=== PATIENT | female | born 1990 | race Caucasian/White ===

== ENCOUNTER 2017-09-02 06:25 | Inpatient (IN) | payer MEDICAID ==
[2017-09-02] MEDS: LACTATED RINGER'S 1,000 ML IV ×4 (07:05→14:16)
[2017-09-02] MEDS ORDERED: LIDOCAINE 1% (MPF) 30 ML INJ INJ (07:30)
[2017-09-02] MEDS ORDERED: OXYTOCIN 30 UNITS/LR 500 ML IV ×2 (07:30→21:30)
[2017-09-02] MEDS ORDERED: CARBOPROST 250 MCG INJ IM ×2 (07:30→21:30)
[2017-09-02] MEDS ORDERED: IBUPROFEN 600 MG TAB PO (07:30)
[2017-09-02] MEDS: BUTORPHANOL 2 MG INJ IV (08:18)
[2017-09-02 08:20] LABS: ADD MAN DIFF? NO
[2017-09-02 08:24] LABS: BASOPHILS % 0.3 % (0.0-2.0); EOSINOPHILS % 0.3 % (0.0-7.0); HEMATOCRIT 31.5 % (37.0-47.0); HEMOGLOBIN 10.8 g/dl (12.0-16.0); LYMPHOCYTES # 2.6 10^3/ul (0.8-2.9); LYMPHOCYTES % 20.2 % (15.0-51.0); MEAN CORPUSCULAR HGB CONC 34.3 g/dl (32.0-37.0); MEAN CORPUSCULAR VOLUME 90.5 fl (82.0-101.0); MONOCYTE # 0.9 10^3/ul (0.3-0.9); MONOCYTES % 6.9 % (0.0-11.0); NEUTROPHIL # 9.3 10^3/ul (1.6-7.5); NEUTROPHILS % 71.3 % (39.0-77.0); PLATELET COUNT 210 10^3/UL (140-415); RED BLOOD COUNT 3.48 10^6/ul (4.20-5.40); RED CELL DISTRIBUTION WIDTH 12.6 % (11.5-14.5)
[2017-09-02] MEDS ORDERED: ONDANSETRON 4 MG INJ IV (09:00)
[2017-09-02] MEDS ORDERED: NALOXONE (0.4 MG/ML) INJ IV (09:00)
[2017-09-02] MEDS ORDERED: DIPHENHYDRAMINE 50 MG INJ IV (09:00)
[2017-09-02 09:12] LABS: HEPATITIS B SURFACE ANTIGEN NEGATIVE (NEGATIVE)
[2017-09-02 09:16] LABS: INR 0.91; PROTIME 12.3 Sec (11.9-14.9)
[2017-09-02 09:17] LABS: PARTIAL THROMBOPLASTIN TIME 24.1 Sec (25.0-35.0)
[2017-09-02] MEDS ORDERED: FENTAnyl 2MCG/ML-ROPIV 0.2% 100 ML (09:25)
[2017-09-02] MEDS: FENTAnyl 2MCG/ML-ROPIV 0.2% 100 ML BAG EPI (17:18)
[2017-09-02 17:23] LABS: RAPID PLASMA REAGIN NONREACTIVE (NR)
[2017-09-02] MEDS: OXYTOCIN 30 UNITS/LR 500 ML IV ×2 (18:52→19:47)
[2017-09-02] MEDS: METHYLERGONOVINE 0.2 MG INJ IM (19:03)
[2017-09-02] MEDS: MISOPROSTOL 200 MCG TAB PR (19:04)
[2017-09-02] MEDS ORDERED: MISOPROSTOL 200 MCG TAB PR (21:30)
[2017-09-02] MEDS ORDERED: HYDROCODONE/APAP (5/325) TAB PO (21:30)
[2017-09-02] MEDS ORDERED: METHYLERGONOVINE 0.2 MG INJ IM (21:30)
[2017-09-02] MEDS ORDERED: ACETAMINOPHEN 325 MG TAB PO (21:30)
[2017-09-02] MEDS ORDERED: DIBUCAINE 1% 30 GM OINT PR (21:30)
[2017-09-02 21:57] LABS: ADD MAN DIFF? NO
[2017-09-02 22:01] LABS: WHITE BLOOD COUNT 22.6 10^3/ul (4.8-10.8)
[2017-09-02 22:01] LABS: BASOPHILS % 0.1 % (0.0-2.0); HEMATOCRIT 36.5 % (37.0-47.0); HEMOGLOBIN 12.1 g/dl (12.0-16.0); LYMPHOCYTES # 1.5 10^3/ul (0.8-2.9); LYMPHOCYTES % 6.8 % (15.0-51.0); MEAN CORPUSCULAR HEMOGLOBIN 30.3 pg (29.0-33.0); MEAN CORPUSCULAR HGB CONC 33.2 g/dl (32.0-37.0); MEAN CORPUSCULAR VOLUME 91.3 fl (82.0-101.0); MEAN PLATELET VOLUME 11.6 fl (7.4-10.4); MONOCYTE # 1.1 10^3/ul (0.3-0.9); MONOCYTES % 5.1 % (0.0-11.0); NEUTROPHIL # 19.7 10^3/ul (1.6-7.5); NEUTROPHILS % 87.3 % (39.0-77.0); PLATELET COUNT 201 10^3/UL (140-415); RED CELL DISTRIBUTION WIDTH 12.7 % (11.5-14.5)
[2017-09-02] MEDS: SENNA/DOCUSATE NA (8.6MG/50MG) TAB PO (22:58)
[2017-09-02] MEDS: LANOLIN 7 GM TUBE TOP (22:59)
[2017-09-02] MEDS: WITCH HAZEL/GLYCERIN PAD PR (22:59)
[2017-09-02] MEDS: BENZOCAINE 20% 56 ML SPRAY TOP (22:59)
[2017-09-03] MEDS: IBUPROFEN 600 MG TAB PO ×5 (00:28→23:43)
[2017-09-03] MEDS: AMPICILLIN/SULB 3 GM/NS (PMX) 100 ML IVPB ×5 (00:28→23:43)
[2017-09-03] MEDS: LACTATED RINGER'S 1,000 ML IV* ×4 (00:29→23:42)
[2017-09-03] MEDS: SENNA/DOCUSATE NA (8.6MG/50MG) TAB PO ×2 (08:35→21:09)
[2017-09-03 09:29] LABS: ADD MAN DIFF? NO
[2017-09-03 09:33] LABS: BASOPHILS % 0.2 % (0.0-2.0); EOSINOPHILS # 0.1 10^3/ul (0.0-0.5); EOSINOPHILS % 0.2 % (0.0-7.0); HEMATOCRIT 28.9 % (37.0-47.0); HEMOGLOBIN 9.8 g/dl (12.0-16.0); LYMPHOCYTES # 3.7 10^3/ul (0.8-2.9); LYMPHOCYTES % 18.2 % (15.0-51.0); MEAN CORPUSCULAR HEMOGLOBIN 30.9 pg (29.0-33.0); MEAN CORPUSCULAR HGB CONC 33.9 g/dl (32.0-37.0); MEAN CORPUSCULAR VOLUME 91.2 fl (82.0-101.0); MEAN PLATELET VOLUME 11.4 fl (7.4-10.4); MONOCYTE # 1.5 10^3/ul (0.3-0.9); MONOCYTES % 7.2 % (0.0-11.0); NEUTROPHIL # 15.1 10^3/ul (1.6-7.5); NEUTROPHILS % 73.3 % (39.0-77.0); PLATELET COUNT 178 10^3/UL (140-415); RED BLOOD COUNT 3.17 10^6/ul (4.20-5.40); RED CELL DISTRIBUTION WIDTH 12.6 % (11.5-14.5)
[2017-09-03 09:33] LABS: WHITE BLOOD COUNT 20.5 10^3/ul (4.8-10.8)
[2017-09-03] MEDS: FERROUS SULFATE (EC) 325 MG TAB PO (21:09)
[2017-09-04] MEDS: LACTATED RINGER'S 1,000 ML IV* (05:27)
[2017-09-04] MEDS: IBUPROFEN 600 MG TAB PO ×3 (05:56→18:00)
[2017-09-04] MEDS: AMPICILLIN/SULB 3 GM/NS (PMX) 100 ML IVPB ×4 (05:57→19:35)
[2017-09-04 06:58] LABS: ADD MAN DIFF? NO
[2017-09-04 07:04] LABS: WHITE BLOOD COUNT 15.3 10^3/ul (4.8-10.8)
[2017-09-04 07:04] LABS: BASOPHIL # 0.1 10^3/ul (0.0-0.1); BASOPHILS % 0.4 % (0.0-2.0); EOSINOPHILS # 0.1 10^3/ul (0.0-0.5); EOSINOPHILS % 0.8 % (0.0-7.0); HEMATOCRIT 27.4 % (37.0-47.0); LYMPHOCYTES # 4.1 10^3/ul (0.8-2.9); LYMPHOCYTES % 26.8 % (15.0-51.0); MEAN CORPUSCULAR HEMOGLOBIN 30.5 pg (29.0-33.0); MEAN CORPUSCULAR HGB CONC 32.8 g/dl (32.0-37.0); MEAN CORPUSCULAR VOLUME 92.9 fl (82.0-101.0); MEAN PLATELET VOLUME 11.8 fl (7.4-10.4); MONOCYTE # 0.9 10^3/ul (0.3-0.9); MONOCYTES % 5.9 % (0.0-11.0); NEUTROPHILS % 65.1 % (39.0-77.0); PLATELET COUNT 186 10^3/UL (140-415); RED BLOOD COUNT 2.95 10^6/ul (4.20-5.40); RED CELL DISTRIBUTION WIDTH 12.9 % (11.5-14.5)
[2017-09-04] MEDS: DIPHTH/TET/ACEL PERTUSS (ADULT) 0.5 ML VIAL IM* (09:00)
[2017-09-04] MEDS: SENNA/DOCUSATE NA (8.6MG/50MG) TAB PO (09:12)
[2017-09-04] MEDS: FERROUS SULFATE (EC) 325 MG TAB PO ×2 (09:12→13:47)
[2017-09-05] MEDS: FERROUS SULFATE (EC) 325 MG TAB PO ×3 (00:41→13:20)
[2017-09-05] MEDS: IBUPROFEN 600 MG TAB PO ×3 (00:41→13:19)
[2017-09-05] MEDS: SENNA/DOCUSATE NA (8.6MG/50MG) TAB PO ×2 (00:41→09:16)
[2017-09-05] MEDS: AMPICILLIN/SULB 3 GM/NS (PMX) 100 ML IVPB ×2 (00:43→06:05)
[2017-09-05] MEDS: LACTATED RINGER'S 1,000 ML IV* ×3 (05:27→05:31)
[2017-09-05 07:02] LABS: ADD MAN DIFF? NO
[2017-09-05 07:10] LABS: BASOPHIL # 0.1 10^3/ul (0.0-0.1); BASOPHILS % 0.5 % (0.0-2.0); EOSINOPHILS # 0.2 10^3/ul (0.0-0.5); EOSINOPHILS % 1.8 % (0.0-7.0); HEMATOCRIT 27.4 % (37.0-47.0); HEMOGLOBIN 9.2 g/dl (12.0-16.0); LYMPHOCYTES # 3.9 10^3/ul (0.8-2.9); LYMPHOCYTES % 29.5 % (15.0-51.0); MEAN CORPUSCULAR HEMOGLOBIN 30.8 pg (29.0-33.0); MEAN CORPUSCULAR HGB CONC 33.6 g/dl (32.0-37.0); MEAN CORPUSCULAR VOLUME 91.6 fl (82.0-101.0); MEAN PLATELET VOLUME 11.1 fl (7.4-10.4); MONOCYTE # 0.7 10^3/ul (0.3-0.9); MONOCYTES % 5.6 % (0.0-11.0); NEUTROPHIL # 8.1 10^3/ul (1.6-7.5); NEUTROPHILS % 61.2 % (39.0-77.0); PLATELET COUNT 194 10^3/UL (140-415); RED BLOOD COUNT 2.99 10^6/ul (4.20-5.40); RED CELL DISTRIBUTION WIDTH 12.8 % (11.5-14.5)
[2017-09-05 07:10] LABS: WHITE BLOOD COUNT 13.2 10^3/ul (4.8-10.8)
== END 2017-09-05 14:05 | disposition home or self-care (01) | DRG 775 ==
LOC: OBT 06:25 → L-D 06:30 → OBT 07:05 → L-D 07:05 → PP1 21:26
PROVIDERS: Obstetrics & Gynecology
PROC: 10E0XZZ Delivery of Products of Conception, External Approach (ICD-10-PCS; principal; 2017-09-02)
PROC: 0KQM0ZZ Repair Perineum Muscle, Open Approach (ICD-10-PCS; 2017-09-02)
PROC: 3E033VJ Introduction of Other Hormone into Peripheral Vein, Percutaneous Approach (ICD-10-PCS; 2017-09-02)
DX: O70.0 First degree perineal laceration during delivery (principal); Z37.0 Single live birth; Z3A.39 39 weeks gestation of pregnancy
CPT/HCPCS: 62319; 85025; 85610; 85730; 86592; 86850; 86900; 86901; 87040; 87086; 87340

== ENCOUNTER 2018-11-12 17:16 | Outpatient (CLI) | payer MEDICAID | END 2018-11-12 21:47 | disposition home or self-care (01) | LOC: OBT 17:16 → L-D 17:17 → OBT 21:47 | DX: O26.893 Other specified pregnancy related conditions, third trimester (principal); Z3A.33 33 weeks gestation of pregnancy; R10.2 Pelvic and perineal pain | CPT/HCPCS: 76815; 76817; 76818 ==

== ENCOUNTER 2018-11-13 09:33 | Inpatient (IN) | payer MEDICAID ==
[2018-11-13] MEDS ORDERED: AL HYDROX/MG HYDROX/SIMETH 30 ML CUP PO (10:00)
[2018-11-13] MEDS ORDERED: ONDANSETRON 4 MG INJ IV (10:00)
[2018-11-13] MEDS ORDERED: DOCUSATE SODIUM 100 MG CAP PO (10:00)
[2018-11-13] MEDS: LACTATED RINGER'S 1,000 ML IV ×2 (10:08→20:04)
[2018-11-13] MEDS: MAGNESIUM SULFATE 4 GM/100 ML 100 ML IV (10:11)
[2018-11-13] MEDS: MAGNESIUM SULFATE 20 GM/500 ML 500 ML IV ×2 (10:18→20:07)
[2018-11-13 10:40] LABS: ADD UMIC YES; UR AMORPHOUS CRYSTAL FEW /HPF (NONE SEEN); UR ASCORBIC ACID NEGATIVE (NEGATIVE); UR BACTERIA FEW /HPF (NONE SEEN); UR BILIRUBIN (Dip) NEGATIVE (NEGATIVE); UR BLOOD (Dip) 1+ mg/dL (NEGATIVE); UR CLARITY TURBID (CLEAR); UR COLOR YELLOW (YELLOW); UR GLUCOSE (Dip) NEGATIVE (NEGATIVE); UR KETONES (Dip) 2+ mg/dL (NEGATIVE); UR LEUKOCYTE ESTERASE (Dip) NEGATIVE Leu/ul (NEGATIVE); UR MUCUS FEW /HPF (NONE SEEN); UR NITRITE (Dip) NEGATIVE (NEGATIVE); UR RBC 50 /HPF (0-5); UR SPECIFIC GRAVITY (Dip) 1.016 (1.003-1.030); UR SQUAMOUS EPITHELIAL CELL FEW /HPF (FEW); UR TOTAL PROTEIN (Dip) 1+ mg/dl (NEGATIVE); UR UROBILINOGEN (Dip) NEGATIVE (NEGATIVE); UR WBC 6 /HPF (0-5)
[2018-11-13 10:45] LABS: ADD MAN DIFF? NO
[2018-11-13 10:46] LABS: WHITE BLOOD COUNT 11.8 10^3/ul (4.8-10.8)
[2018-11-13 10:46] LABS: BASOPHILS % 0.3 % (0.0-2.0); EOSINOPHILS % 0.2 % (0.0-7.0); HEMATOCRIT 30.6 % (37.0-47.0); HEMOGLOBIN 10.2 g/dl (12.0-16.0); LYMPHOCYTES # 2.3 10^3/ul (0.8-2.9); LYMPHOCYTES % 19.2 % (15.0-51.0); MEAN CORPUSCULAR HGB CONC 33.3 g/dl (32.0-37.0); MEAN PLATELET VOLUME 10.9 fl (7.4-10.4); MONOCYTE # 0.5 10^3/ul (0.3-0.9); MONOCYTES % 3.8 % (0.0-11.0); NEUTROPHILS % 75.7 % (39.0-77.0); PLATELET COUNT 201 10^3/UL (140-415); RED CELL DISTRIBUTION WIDTH 12.2 % (11.5-14.5)
[2018-11-13] MEDS: BETAMET NA PHOS/AC(6 MG/ML) 2 ML INJ SYG IM (10:50)
[2018-11-13] MEDS: CEFAZOLIN 2 GM/50 ML (PMX) 50 ML IVPB (11:04)
[2018-11-13 11:17] LABS: AMPHETAMINE/METHAMPHETAMINE Negative (NEGATIVE); BARBITURATES Negative (NEGATIVE); BENZODIAZEPINES Negative (NEGATIVE); CANNABINOIDS Negative (NEGATIVE); COCAINE Negative (NEGATIVE); OPIATES Negative (NEGATIVE)
[2018-11-13] MEDS: morphine 2 MG INJ IV (12:01)
[2018-11-13] MEDS: AMPICILLIN 2 GM/NS (PMX) 100 ML IVPB (13:02)
[2018-11-13] MEDS: BUTORPHANOL 2 MG INJ IV (14:45)
[2018-11-13] MEDS: AZITHROMYCIN 500 MG in SOD CHLORIDE 0.9% 250 ML IVPB (14:51)
[2018-11-13] MEDS: AMPICILLIN 1 GM/NS (PMX) 50 ML IVPB ×2 (17:00→21:01)
[2018-11-13 19:07] LABS: MAGNESIUM 6.6 mg/dl (1.7-2.5)
[2018-11-14 00:52] LABS: MAGNESIUM 7.5 mg/dl (1.7-2.5)
[2018-11-14] MEDS: AMPICILLIN 1 GM/NS (PMX) 50 ML IVPB ×6 (01:01→21:46)
[2018-11-14] MEDS: LACTATED RINGER'S 1,000 ML IV ×3 (01:52→17:54)
[2018-11-14] MEDS: MAGNESIUM SULFATE 20 GM/500 ML 500 ML IV ×3 (05:52→17:54)
[2018-11-14 06:49] LABS: MAGNESIUM 3.6 mg/dl (1.7-2.5)
[2018-11-14] MEDS: PRENATAL VITAMIN PO (09:54)
[2018-11-14] MEDS: AZITHROMYCIN 500 MG in SOD CHLORIDE 0.9% 250 ML IVPB (09:54)
[2018-11-14] MEDS: DOCUSATE SODIUM 100 MG CAP PO (09:55)
[2018-11-14] MEDS: BETAMET NA PHOS/AC(6 MG/ML) 2 ML INJ SYG IM (11:00)
[2018-11-14 13:52] LABS: MAGNESIUM 5.1 mg/dl (1.7-2.5)
[2018-11-14 16:19] LABS: ADD UMIC YES; UR ASCORBIC ACID NEGATIVE (NEGATIVE); UR BILIRUBIN (Dip) NEGATIVE (NEGATIVE); UR BLOOD (Dip) 3+ mg/dL (NEGATIVE); UR CLARITY SLIGHTLY CLOUDY (CLEAR); UR COLOR STRAW (YELLOW); UR GLUCOSE (Dip) 2+ mg/dL (NEGATIVE); UR KETONES (Dip) NEGATIVE (NEGATIVE); UR LEUKOCYTE ESTERASE (Dip) NEGATIVE Leu/ul (NEGATIVE); UR NITRITE (Dip) NEGATIVE (NEGATIVE); UR RBC 1 /HPF (0-5); UR SPECIFIC GRAVITY (Dip) 1.005 (1.003-1.030); UR SQUAMOUS EPITHELIAL CELL FEW /HPF (FEW); UR TOTAL PROTEIN (Dip) NEGATIVE (NEGATIVE); UR UROBILINOGEN (Dip) NEGATIVE (NEGATIVE); UR WBC 1 /HPF (0-5)
[2018-11-14 19:36] LABS: MAGNESIUM 5.3 mg/dl (1.7-2.5)
[2018-11-15 01:19] LABS: MAGNESIUM 5.5 mg/dl (1.7-2.5)
[2018-11-15] MEDS: AMPICILLIN 1 GM/NS (PMX) 50 ML IVPB ×6 (01:46→22:48)
[2018-11-15] MEDS: MAGNESIUM SULFATE 20 GM/500 ML 500 ML IV ×2 (03:44→21:52)
[2018-11-15] MEDS: LACTATED RINGER'S 1,000 ML IV ×3 (06:03→18:34)
[2018-11-15] MEDS: DOCUSATE SODIUM 100 MG CAP PO (11:05)
[2018-11-15] MEDS: PRENATAL VITAMIN PO (11:06)
[2018-11-15] MEDS: AZITHROMYCIN 500 MG in SOD CHLORIDE 0.9% 250 ML IVPB (11:48)
[2018-11-16] MEDS: AMPICILLIN 1 GM/NS (PMX) 50 ML IVPB ×6 (02:15→20:42)
[2018-11-16] MEDS: LACTATED RINGER'S 1,000 ML IV ×2 (02:15→17:49)
[2018-11-16] MEDS: PRENATAL VITAMIN PO (09:13)
[2018-11-16] MEDS: AZITHROMYCIN 500 MG in SOD CHLORIDE 0.9% 250 ML IVPB (11:59)
[2018-11-16] MEDS: ACETAMINOPHEN 325 MG TAB PO (13:05)
[2018-11-17] MEDS: LACTATED RINGER'S 1,000 ML IV ×5 (00:43→23:28)
[2018-11-17] MEDS: AMPICILLIN 1 GM/NS (PMX) 50 ML IVPB ×6 (00:43→23:01)
[2018-11-17] MEDS: DOCUSATE SODIUM 100 MG CAP PO (09:41)
[2018-11-17] MEDS: PRENATAL VITAMIN PO (09:41)
[2018-11-17] MEDS ORDERED: LIDOCAINE 1% (MPF) 30 ML INJ INJ ×2 (11:00→14:30)
[2018-11-17] MEDS ORDERED: OXYTOCIN 30 UNITS/LR 500 ML IV ×5 (11:00→14:30)
[2018-11-17] MEDS ORDERED: MISOPROSTOL 200 MCG TAB PR ×2 (11:00→14:30)
[2018-11-17] MEDS ORDERED: CARBOPROST 250 MCG INJ IM ×2 (11:00→14:30)
[2018-11-17] MEDS ORDERED: IBUPROFEN 600 MG TAB PO (11:00)
[2018-11-17 12:30] LABS: ADD MAN DIFF? NO
[2018-11-17 12:33] LABS: WHITE BLOOD COUNT 10.6 10^3/ul (4.8-10.8)
[2018-11-17 12:33] LABS: BASOPHILS % 0.3 % (0.0-2.0); EOSINOPHILS % 0.4 % (0.0-7.0); HEMATOCRIT 31.9 % (37.0-47.0); HEMOGLOBIN 10.3 g/dl (12.0-16.0); LYMPHOCYTES # 2.8 10^3/ul (0.8-2.9); LYMPHOCYTES % 26.6 % (15.0-51.0); MEAN CORPUSCULAR HEMOGLOBIN 30.1 pg (29.0-33.0); MEAN CORPUSCULAR HGB CONC 32.3 g/dl (32.0-37.0); MEAN CORPUSCULAR VOLUME 93.3 fl (82.0-101.0); MONOCYTE # 0.7 10^3/ul (0.3-0.9); MONOCYTES % 6.7 % (0.0-11.0); NEUTROPHILS % 65.2 % (39.0-77.0); PLATELET COUNT 200 10^3/UL (140-415); RED BLOOD COUNT 3.42 10^6/ul (4.20-5.40); RED CELL DISTRIBUTION WIDTH 12.6 % (11.5-14.5)
[2018-11-17 12:54] LABS: INR 0.86; PARTIAL THROMBOPLASTIN TIME 23.8 Sec (23.0-35.0); PROTIME 11.8 Sec (11.9-14.9); PT RATIO 0.9
[2018-11-17] MEDS ORDERED: METHYLERGONOVINE 0.2 MG INJ IM (14:30)
[2018-11-17] MEDS: OXYTOCIN 30 UNITS/LR 500 ML IV (15:25)
[2018-11-17 20:24] LABS: RAPID PLASMA REAGIN NONREACTIVE (NR)
[2018-11-17] MEDS ORDERED: FENTAnyl 2MCG/ML-ROPIV 0.2% 100 ML (22:32)
[2018-11-17] MEDS ORDERED: NALOXONE (0.4 MG/ML) INJ IV (23:00)
[2018-11-18] MEDS: AMPICILLIN 1 GM/NS (PMX) 50 ML IVPB ×3 (02:35→11:50)
[2018-11-18] MEDS: FENTAnyl 2MCG/ML-ROPIV 0.2% 100 ML BAG EPI ×2 (07:15→15:26)
[2018-11-18] MEDS: LACTATED RINGER'S 1,000 ML IV ×2 (07:20→15:23)
[2018-11-18] MEDS: OXYTOCIN 30 UNITS/LR 500 ML IV ×2 (13:48→18:07)
[2018-11-18] MEDS: METHYLERGONOVINE 0.2 MG INJ IM (17:57)
[2018-11-18] MEDS: LACTATED RINGER'S 1,000 ML IV* (20:33)
[2018-11-18] MEDS ORDERED: OXYTOCIN 30 UNITS/LR 500 ML IV (21:00)
[2018-11-18] MEDS ORDERED: DIBUCAINE 1% 30 GM OINT TOP (21:00)
[2018-11-18] MEDS ORDERED: ACETAMINOPHEN 325 MG TAB PO (21:00)
[2018-11-18] MEDS ORDERED: METHYLERGONOVINE 0.2 MG INJ IM (21:00)
[2018-11-18] MEDS ORDERED: CARBOPROST 250 MCG INJ IM (21:00)
[2018-11-18] MEDS ORDERED: HYDROCODONE/APAP (5/325) TAB PO (21:00)
[2018-11-18] MEDS ORDERED: MISOPROSTOL 200 MCG TAB PR (21:00)
[2018-11-18] MEDS: SENNA/DOCUSATE NA (8.6MG/50MG) TAB PO (21:15)
[2018-11-18] MEDS: WITCH HAZEL/GLYCERIN PAD PR (21:16)
[2018-11-18] MEDS: BENZOCAINE 20% 56 ML SPRAY TOP (21:16)
[2018-11-18] MEDS: IBUPROFEN 600 MG TAB PO (23:43)
[2018-11-19] MEDS: LACTATED RINGER'S 1,000 ML IV* ×2 (04:33→12:33)
[2018-11-19 05:14] LABS: ADD MAN DIFF? NO
[2018-11-19 05:27] LABS: WHITE BLOOD COUNT 13.9 10^3/ul (4.8-10.8)
[2018-11-19 05:27] LABS: BASOPHILS % 0.2 % (0.0-2.0); EOSINOPHILS # 0.1 10^3/ul (0.0-0.5); EOSINOPHILS % 0.4 % (0.0-7.0); HEMATOCRIT 30.6 % (37.0-47.0); HEMOGLOBIN 10.3 g/dl (12.0-16.0); LYMPHOCYTES # 3.2 10^3/ul (0.8-2.9); LYMPHOCYTES % 22.8 % (15.0-51.0); MEAN CORPUSCULAR HEMOGLOBIN 30.1 pg (29.0-33.0); MEAN CORPUSCULAR HGB CONC 33.7 g/dl (32.0-37.0); MEAN CORPUSCULAR VOLUME 89.5 fl (82.0-101.0); MEAN PLATELET VOLUME 11.6 fl (7.4-10.4); MONOCYTE # 0.7 10^3/ul (0.3-0.9); MONOCYTES % 4.7 % (0.0-11.0); NEUTROPHIL # 9.9 10^3/ul (1.6-7.5); NEUTROPHILS % 71.3 % (39.0-77.0); PLATELET COUNT 203 10^3/UL (140-415); RED BLOOD COUNT 3.42 10^6/ul (4.20-5.40)
[2018-11-19] MEDS: IBUPROFEN 600 MG TAB PO ×3 (06:09→17:15)
[2018-11-19] MEDS: SENNA/DOCUSATE NA (8.6MG/50MG) TAB PO ×2 (08:59→21:41)
[2018-11-20] MEDS: IBUPROFEN 600 MG TAB PO ×3 (06:00→11:38)
[2018-11-20] MEDS: DIPHTH/TET/ACEL PERTUSS (ADULT) 0.5 ML VIAL IM* (08:39)
[2018-11-20] MEDS: SENNA/DOCUSATE NA (8.6MG/50MG) TAB PO (08:39)
== END 2018-11-20 17:00 | disposition home or self-care (01) | DRG 807 ==
LOC: L-D 11-17 13:33 → MS1 11-18 21:12 → OBT 09:33 → L-D 09:34 → OBT 09:45 → L-D 09:45
PROC: 10E0XZZ Delivery of Products of Conception, External Approach (ICD-10-PCS; principal; 2018-11-18)
PROC: 0HQ9XZZ Repair Perineum Skin, External Approach (ICD-10-PCS; 2018-11-18)
DX: O60.14X0 Preterm labor third trimester with preterm delivery third trimester, not applicable or unspecified (principal); Z37.0 Single live birth; O42.013 Preterm premature rupture of membranes, onset of labor within 24 hours of rupture, third trimester; O70.0 First degree perineal laceration during delivery; Z3A.33 33 weeks gestation of pregnancy
CPT/HCPCS: 62322; 76815; 80307; 81001; 83735; 85025; 85610; 85730; 86592; 86850; 86900; 86901; 87086; 88307; 90715; 99464